=== PATIENT | female | born 1995 | race African-American/Black ===

== ENCOUNTER 2019-04-12 14:46 | Emergency (ER) | payer BC, MEDICAID, OTHER ==
[~2019-04-12] VITALS: Ht 160 cm; Wt 50.8 kg
--- NOTE | 2019-04-12 15:42 | NUR ---
Patient discharged to home in stable conditon. Written and verbal after care instructions given. Patient verbalizes understanding of instructions.
== END 2019-04-12 15:44 | disposition home or self-care (01) ==
LOC: ER 14:46
DX: M54.42 Lumbago with sciatica, left side (principal); M25.562 Pain in left knee; Z88.1 Allergy status to other antibiotic agents
CPT/HCPCS: A4663